=== PATIENT | female | born 1990 | race American Indian/Alaskan Native ===

== ENCOUNTER 2019-08-13 16:25 | Emergency (ER) | payer MEDICAID ==
--- NOTE | 2019-08-13 17:45 | Event Note ---
ED Screening Note Date of service: 08/13/19 Time: 17:41 ED Screening Note: 28 y/o female c/o of abd pain and vaginal bleeding while 9 weeks preg. Bleeding 2 day and pelvic pain times 2 week. No OB care. Started vitamins. G3PP1. This initial assessment/diagnostic orders/clinical plan/treatment(s) is/are subject to change based on patients health status, clinical progression and re- assessment by fellow clinical providers in the ED. Further treatment and workup at subsequent clinical providers discretion. Patient/guardian urged not to elope from the ED as their condition may be serious if not clinically assessed and managed. Initial orders include:
[2019-08-13 18:52] LABS: Basophils % (Auto) 0.6 % (0.0-1.8); Eosinophils % (Auto) 0.5 % (0.0-4.3); Hematocrit 39.3 % (30.3-42.9); Hemoglobin 13.3 gm/dl (10.1-14.3); Lymphocytes # (Auto) 2.1 K/mm3 (1.2-5.4); Lymphocytes % (Auto) 30.3 % (13.4-35.0); Mean Corpuscular HGB Conc 34 % (30-34); Mean Corpuscular Volume 90 fl (79-97); Monocytes # (Auto) 0.5 K/mm3 (0.0-0.8); Monocytes % (Auto) 7.5 % (0.0-7.3); Platelet Count 248 K/mm3 (140-440); Red Blood Count 4.37 M/mm3 (3.65-5.03); Red Cell Distribution Width 12.7 % (13.2-15.2)
[2019-08-13 19:35] LABS: Bacteria,Urine 2+ /HPF (Negative); Bilirubin,Urine NEG (Negative); Blood,Urine NEG (Negative); Color,Urine Yellow (Yellow); Protein,Urine <15 mg/dL mg/dL (Negative); Urobilinogen,Urine < 2.0 mg/dL (<2.0)
--- NOTE | 2019-08-13 19:54 | Emergency Department Report ---
ED Abdominal Pain HPI - General Chief Complaint: Abdominal Pain Stated Complaint: 9WKS /ABD PAIN Time Seen by Provider: 08/13/19 19:30 Source: patient Mode of arrival: Ambulatory Limitations: No Limitations - History of Present Illness Initial Comments: Patient is a 28-year-old female that presents emergency room with complaints of lower abdominal pain. Patient states it started 3 days ago. Patient states yesterday she started spotting. Patient states she is 9 weeks . Patient states the pain is better with rest and worse with movement. Patient states she has not seen an FARM EQUIPMENT ASSEMBLER yet. Patient states her pain is a 9 out of 10. Patient states the pain is in her suprapubic/lower abdomen region. Denies vaginal discharge. Patient denies loss of fluid per vagina. Patient denies fever and chills. Patient denies nausea vomiting. Patient is a . . MD Complaint: abdominal pain -: Sudden Location: suprapubic Radiation: none Migration to: no migration Severity: severe Severity scale (0 -10): 9 Quality: cramping, stabbing Consistency: constant Improves With: rest Worsens With: movement Associated Symptoms: denies: nausea, vomiting, diarrhea, fever, chills, constipation, dysuria, hematemesis, hematochezia, melena, hematuria, anorexia, syncope - Related Data LMP Date: 06/05/19 LMP (females 10-50): Previous Rx's Medication Instructions Recorded Last Taken Type HYDROcodone/ACETAMINOPHEN [[place] 1 each PO Q6HR PRN #20 tablet 04/14/14 Unknown Rx 5/325 Tablet] Ibuprofen [Motrin] 600 mg PO Q8H PRN #60 tablet 04/14/14 Unknown Rx Sulfamethoxazole/Trimethoprim 1 each PO BID #14 tablet 04/14/14 Unknown Rx [Bactrim Ds] Acetaminophen/Codeine [Tylenol #3] 1 tab PO TID PRN #15 tab 07/18/15 Unknown Rx methOCARBAMOL [Robaxin TAB] 500 mg PO BID #20 tab 07/18/15 Unknown Rx Vit No.130/Iron/Folic 1 each PO QDAY #30 tablet 12/23/16 Unknown Rx [ Tablet] Allergies Allergy/AdvReac Type Severity Reaction Status Date / Time No Known Allergies Allergy Verified 08/13/19 17:02 ED Review of Systems ROS: Stated complaint: 9WKS /ABD PAIN Other details as noted in HPI Constitutional: denies: chills, fever Eyes: denies: eye pain, eye discharge, vision change ENT: denies: ear pain, throat pain Respiratory: denies: cough, shortness of breath, wheezing Cardiovascular: denies: chest pain, palpitations Endocrine: no symptoms reported Gastrointestinal: abdominal pain. denies: nausea, diarrhea Genitourinary: denies: urgency, dysuria, discharge Musculoskeletal: denies: back pain, joint swelling, arthralgia Skin: denies: rash, lesions Neurological: denies: headache, weakness, paresthesias Psychiatric: denies: anxiety, depression Hematological/Lymphatic: denies: easy bleeding, easy bruising ED Past Medical Hx - Past Medical History Previous Medical History?: No - Surgical History Past Surgical History?: Yes Additional Surgical History: CS - Family History Family history: no significant - Social History Smoking Status: Never Smoker Substance Use Type: None - Medications Home Medications: Home Medications Medication Instructions Recorded Confirmed Last Taken Type HYDROcodone/ACETAMINOPHEN [[place] 1 each PO Q6HR PRN #20 tablet 04/14/14 Unknown Rx 5/325 Tablet] Ibuprofen [Motrin] 600 mg PO Q8H PRN #60 tablet 04/14/14 Unknown Rx Sulfamethoxazole/Trimethoprim 1 each PO BID #14 tablet 04/14/14 Unknown Rx [Bactrim Ds] Acetaminophen/Codeine [Tylenol #3] 1 tab PO TID PRN #15 tab 07/18/15 Unknown Rx methOCARBAMOL [Robaxin TAB] 500 mg PO BID #20 tab 07/18/15 Unknown Rx Vit No.130/Iron/Folic 1 each PO QDAY #30 tablet 12/23/16 Unknown Rx [ Tablet] ED Physical Exam - General Limitations: No Limitations General appearance: alert, in no apparent distress - Head Head exam: Present: atraumatic, normocephalic - Eye Eye exam: Present: normal appearance - ENT ENT exam: Present: mucous membranes moist - Neck Neck exam: Present: normal inspection - Respiratory Respiratory exam: Present: normal lung sounds bilaterally. Absent: respiratory distress - Cardiovascular Cardiovascular Exam: Present: regular rate, normal rhythm. Absent: systolic murmur, diastolic murmur, rubs, gallop - GI/Abdominal GI/Abdominal exam: Present: soft, normal bowel sounds. Absent: distended, tenderness, guarding - Extremities Exam Extremities exam: Present: normal inspection - Back Exam Back exam: Present: normal inspection - Neurological Exam Neurological exam: Present: alert, oriented X3 - Psychiatric Psychiatric exam: Present: normal affect, normal mood - Skin Skin exam: Present: warm, dry, intact, normal color. Absent: rash ED Course Vital Signs 08/13/19 08/13/19 08/14/19 17:01 17:39 00:59 Temperature 98.4 F 98.4 F 98.6 F Pulse Rate 91 H 91 H 80 Respiratory 16 16 16 Rate Blood Pressure 108/74 Blood Pressure 108/74 107/70 [Left] O2 Sat by Pulse 100 100 100 Oximetry - Reevaluation(s) Reevaluation #1: I discussed all results with patient. I discussed plan of care with patient. Patient agrees with plan of care. Patient is stable for discharge. Patient bradford l be discharged home. Patient given discharge instructions. Patient voiced understanding of discharge instructions. 08/14/19 00:45 - Consultations Consultation #1: Discussed case with Dr. Haris Garcia. Dr. Garcia recommends discharge and for her to follow-up within 1-2 days in his office for serial ultrasounds and hCGs. 08/14/19 00:30 ED Medical Decision Making - Lab Data Result diagrams: 08/13/19 18:04 - Radiology Data Radiology results: report reviewed ULTRASOUND OBSTETRIC INDICATION / CLINICAL INFORMATION: abd pain. spotting. preg. Clinical Gestational Age (GA): 5 weeks 2 days TECHNIQUE: Transabdominal and Transvaginal. COMPARISON: None available. FINDINGS: UTERUS: The uterus is anteverted and anteflexed, measuring up to 11.4 x 5.6 x 6.5 cm. Endometrial thickness measures 16.5 mm. There is no evidence of an intrauterine of at least 4-5 weeks gestation. A 7 mm hypoechoic lesion in the posterior uterine body likely represents a small fibroid. ADNEXA: A mass measuring 2.3 x 2.0 x 1.9 cm in the left ovary is most compatible with a corpus luteum. The right ovary is unremarkable in appearance. No separate adnexal mass identified. FREE FLUID: None. ADDITIONAL FINDINGS: None. IMPRESSION: 1. No evidence of an intrauterine of at least 4-5 weeks gestation. Findings represent of unknown location, with differential considerations including early intrauterine , early ectopic, or completed miscarriage. Recommend correlation with serial hCG and repeat ultrasound as warranted. 2. A mass arising in the left ovary is most compatible with a corpus luteum. - Medical Decision Making Patient is a 28-year-old female that presents emergency room with lower abdom inal pain and spotting. Patient claims she is 9 weeks . Patient had a ultrasound done which shows a empty uterus. I discussed the case with our SHOP WORKER on-call and he recommends discharge and serial hCGs and ultrasounds. Patient's labs unremarkable. Patient's hCG 1818. - Differential Diagnosis abdominal pain, threatened miscarriage. . Spotting. Critical care attestation.: If time is entered above; I have spent that time in minutes in the direct care of this critically ill patient, excluding procedure time. ED Disposition Clinical Impression: Vaginal spotting, Threatened miscarriage Qualifiers: Weeks of gestation: less than 8 weeks Qualified Code(s): Z3A.01 - Less than 8 weeks gestation of Abdominal pain Qualifiers: Abdominal location: lower abdomen, unspecified Qualified Code(s): R10.30 - Lower abdominal pain, unspecified Disposition: DC- TO HOME OR SELFCARE Is pt being admited?: No Does the pt Need Aspirin: No Condition: Stable Instructions: Spontaneous Miscarriage (ED), Threatened Miscarriage (ED), Abdominal Pain (ED) Additional Instructions: Patient to follow-up with primary care in 2-3 days. Patient to follow-up with FARM EQUIPMENT ASSEMBLER within 2 days. Patient to start a vitamin. Patient to return to ER if condition worsens. Patient to rest. Patient to increase water. Patient to take meds as directed. Patient's take Tylenol when necessary for polo Referrals: VASYL GARCIA MD [Primary Care Provider] - 2-3 Days HARIS GARCIA MD [Staff Physician] - 2-3 Days Time of Disposition: 00:50
--- NOTE | 2019-08-14 00:24 | Ultrasound Report ---
ULTRASOUND OBSTETRIC INDICATION / CLINICAL INFORMATION: abd pain. spotting. preg. Clinical Gestational Age (GA): 5 weeks 2 days TECHNIQUE: Transabdominal and Transvaginal. COMPARISON: None available. FINDINGS: UTERUS: The uterus is anteverted and anteflexed, measuring up to 11.4 x 5.6 x 6.5 cm. Endometrial thi ckness measures 16.5 mm. There is no evidence of an intrauterine of at least 4-5 weeks gest ation. A 7 mm hypoechoic lesion in the posterior uterine body likely represents a small fibroid. ADNEXA: A mass measuring 2.3 x 2.0 x 1.9 cm in the left ovary is most compatible with a corpus luteum . The right ovary is unremarkable in appearance. No separate adnexal mass identified. FREE FLUID: None. ADDITIONAL FINDINGS: None. IMPRESSION: 1. No evidence of an intrauterine of at least 4-5 weeks gestation. Findings represent pregn reuben of unknown location, with differential considerations including early intrauterine , ea rly ectopic, or completed miscarriage. Recommend correlation with serial hCG and repeat ultrasound as warranted. 2. A mass arising in the left ovary is most compatible with a corpus luteum. Signer Name: Manuela Jansen MD Signed: 08/14/2019 12:19 AM Workstation Name: [id number]
[2019-08-14 01:01] VITALS: BP 107/70
== END 2019-08-14 01:02 | disposition home or self-care (01) ==
LOC: ED 16:25
DX: O20.0 Threatened abortion (principal); Z3A.01 Less than 8 weeks gestation of pregnancy
CPT/HCPCS: 36415; 76801; 76817; 81001; 84702; 85025; 86850; 86900; 86901

== ENCOUNTER 2020-04-09 09:21 | Inpatient (IN) | payer MEDICAID ==
[2020-04-09] MEDS ORDERED: LACTATED RINGERS 1,000 ML ONE (11:02)
[2020-04-09] MEDS: LACTATED RINGERS 1,000 ML IV SCH ×2 (11:20→12:49)
[2020-04-09] MEDS ORDERED: FAMOTIDINE 20 MG/2 ML INJ IV NR (11:20)
[2020-04-09] MEDS ORDERED: METOCLOPRAMIDE 10 MG/2 ML INJ IV NR (11:20)
[2020-04-09] MEDS ORDERED: BICITRA ORAL LIQD 30ML PO NR (11:20)
[2020-04-09 11:48] LABS: Basophils # (Auto) 0.1 K/mm3 (0.0-0.1); Basophils % (Auto) 0.5 % (0.0-1.8); Eosinophils % (Auto) 0.2 % (0.0-4.3); Hematocrit 40.3 % (30.3-42.9); Hemoglobin 13.7 gm/dl (10.1-14.3); Lymphocytes # (Auto) 1.8 K/mm3 (1.2-5.4); Lymphocytes % (Auto) 16.6 % (13.4-35.0); Mean Corpuscular HGB Conc 34 % (30-34); Mean Corpuscular Volume 92 fl (79-97); Monocytes % (Auto) 8.6 % (0.0-7.3); Platelet Count 219 K/mm3 (140-440); Red Blood Count 4.36 M/mm3 (3.65-5.03); Red Cell Distribution Width 14.5 % (13.2-15.2)
[2020-04-09] MEDS ORDERED: ceFAZolin/Water 2 GM/20 ML 2 GM/20 ML SYRINGE IV NR (12:00)
[2020-04-09] MEDS ORDERED: OXYTOCIN 20 UNIT/1000ML DRIP 20 UNITS/1,000 ML BAG IV SCH ×2 (12:00→15:00)
--- NOTE | 2020-04-09 13:01 | Anesthesia Consultation ---
Anesthesia Consult and Med Hx - Airway Anesthetic Teeth Evaluation: Good ROM Head & Neck: Adequate Mental/Hyoid Distance: Adequate Mallampati Class: Class II Intubation Access Assessment: Good - Pulmonary Exam CTA: Yes - Cardiac Exam Cardiac Exam: RRR - Pre-Operative Health Status ASA Pre-Surgery Classification: ASA2 Proposed Anesthetic Plan: Spinal - Pulmonary Hx Smoking: Yes (quit) Hx Asthma: No Hx Respiratory Symptoms: No SOB: No COPD: No Home Oxygen Therapy: No Hx Pneumonia: No Hx Sleep Apnea: No - Cardiovascular System Hx Hypertension: No Hx Coronary Artery Disease: No Hx Heart Attack/AMI: No Hx Angina: No Hx Percutaneous Transluminal Coronary Angioplasty (PTCA): No Hx Cardia Arrhythmia: No Hx Pacemaker: No Hx Internal Defibrillator: No Hx Valvular Heart Disease: No Hx Heart Murmur: No Hx Peripheral Vascular Disease: No - Central Nervous System Hx Neuromuscular Disorder: No Hx Seizures: No CVA: No Hx Back Pain: No Hx Psychiatric Problems: No - Gastrointestinal Hx Ulcer: No Hx Gastroesophageal Reflux Disease: No - Endocrine Hx Renal Disease: No Hx End Stage Renal Disease: No Hx Cirrhosis: No Hx Liver Disease: No Hx Insulin Dependent Diabetes: No Hx Non-Insulin Dependent Diabetes: No Hx Thyroid Disease: No Hx Hypothyroidism: No Hx Hyperthyroidism: No - Hematic Hx Anemia: No Hx Sickle Cell Disease: No - Other Systems Hx Alcohol Use: No Hx Substance Use: No Hx Cancer: No Hx Obesity: No - Additional Comments Anesthesia Medical History Comments: IUP
--- NOTE | 2020-04-09 13:02 | Anesthesia Day of Surgery ---
Anesthesia Day of Surgery - Day of Surgery Patient Examined: Yes Patient H&P Reviewed: Yes Patient is NPO: Yes Beta Blockers: No (n/a) Cardiac Clearance: No (n/a) Pulmonary Clearance: No (n/a) Vinh's Test: N/A
[2020-04-09] MEDS ORDERED: ceFAZolin/STERILE WATER 2 GM/20 ML SYRINGE IV ONE (13:15)
[2020-04-09] MEDS ORDERED: ONDANSETRON 4 MG/2 ML INJ ONE (13:21)
[2020-04-09] MEDS ORDERED: WATER FOR IRRIG STERILE 1,500 ML BOTTLE IR ONE (13:37)
[2020-04-09] MEDS ORDERED: SODIUM CHLORIDE 0.9% IRR 1,500 ML BOTTLE IR ONE (13:37)
[2020-04-09] MEDS ORDERED: PHENYLEPHRINE/NS 1,000 MCG/10 ML SYRINGE (OR USE) IV ONE (13:41)
[2020-04-09] MEDS ORDERED: DEXMEDETOMIDINE 200 MCG/2 ML VIAL IV ONE (13:41)
[2020-04-09] MEDS ORDERED: KETOROLAC 30 MG/1 ML INJ ONE (13:41)
[2020-04-09] MEDS ORDERED: WITCH HAZEL/ GLYCERIN PAD TP PRN (14:40)
[2020-04-09] MEDS ORDERED: LANOLIN/ZINC/DIMETHICONE (LANSINOH) 7 GM TP PRN (14:40)
[2020-04-09] MEDS ORDERED: NALOXONE 0.4 MG/1 ML INJ IV PRN (14:40)
[2020-04-09] MEDS ORDERED: oxyCODONE /ACETAMINOPHEN 5-325MG TAB PO PRN (14:40)
[2020-04-09] MEDS ORDERED: ONDANSETRON 4 MG/2 ML INJ IV PRN (14:42)
--- NOTE | 2020-04-09 14:46 | Procedure Note ---
OB Delivery Note - Delivery Date of Delivery: 04/09/20 Surgeon: RADHA CONTRERAS Estimated blood loss: other (800 cc) - Section Preop diagnosis: repeat Postop diagnosis: same section procedure: section, repeat low transverse Disposition: PACU Complications: none Narrative: Indication: 29 yo at 39.5 weeks with h/o prior is here for her scheduled repeat low-transverse . Findings: Normal uterus, tubes and ovaries. Clear fluid. No nuchal cord. Some moderate scarring between the bladder and the anterior peritoneal wall and rectus muscle in that area. Moderate subcutaneous tissue scarring also. Procedure: Patient taken to the operating room and prepped and draped in the usual fashion. Pfannenstiel skin incision was made and carried down to the underlying fascia. Fascia was incised and the incision was extended bilaterally. Rectus fascia dissected off the rectus muscle both superiorly and inferiorly. Peritoneum identified tented up and entered. Peritoneal incision extended superiorly and inferiorly with good visualization of the bladder. Bladder blade was placed. Uterine incision was made and the incision was extended bilaterally. The baby was delivered from in the typical vertex fashion. Baby bulb suctioned at the incision site and again after delivery. Cord was delayed clamped and cut and handed off to waiting team. The placenta was delivered spontaneously. The uterus was exteriorized and cleared of all clots and debris. Uterine incision closed with 0 Vicryl in a running locked fashion followed by a second imbricating layer of 0 Vicryl. Good hemostasis was noted. Her urine was clear. Uterus tubes and ovaries return to the abdominal cavity. Gutters were cleared of all clots and debris and the pelvis was well irrigated. Good hemostasis noted. Interceed placed over the uterine incision and over the lower uterine segment in the midline. Attention was turned to the rectus fascia which was reapproximated with 0 Vicryl in a running fashion. Subcutaneous tissues was irrigated and reapproximated with 2-0 Vicryl in a running fashion. Skin was closed with 4-0 Vicryl in a subcuticular fashion followed by Dermabond. The procedure was concluded at this point and the patient tolerated the procedure well. All instrument and lap counts were correct. - A at 1 minute: 8 at 5 minutes: 9 Infant Gender: Female
[2020-04-09] MEDS: KETOROLAC 30 MG/1 ML INJ IV PRN ×2 (16:19→22:19)
[2020-04-10] MEDS: oxyCODONE /ACETAMINOPHEN 5-325MG TAB PO PRN ×4 (00:17→20:41)
[2020-04-10 05:54] LABS: Hematocrit 38.3 % (30.3-42.9); Hemoglobin 12.7 gm/dl (10.1-14.3)
[2020-04-10] MEDS: KETOROLAC 30 MG/1 ML INJ IV PRN (08:15)
--- NOTE | 2020-04-10 11:02 | Progress Note ---
Assessment and Plan A: /postop day 1 S/P repeat LTCS. P: Encouraged patient to ambulate. Subjective - Subjective Date of service: 04/10/20 Principal diagnosis: /postop day 1 S/P repeat LTCS Interval history: /postop day 1. Patient reports: appetite normal, voiding normally, pain well controlled, flatus, ambulating normally, no dizzy ambulation, no nauseated : doing well Objective - Vital Signs Latest vital signs: Vital Signs Temp Pulse Resp BP BP Pulse Ox 04/10/20 08:26 98.6 F 108 H 20 106/64 04/10/20 08:15 20 04/10/20 06:30 98.0 F 90 18 101/62 98 04/10/20 02:44 97.9 F 78 18 100/55 96 04/09/20 21:22 98.3 F 87 18 98/53 97 04/09/20 16:50 97.5 F L 78 18 90/56 98 04/09/20 16:00 97.5 F L 78 10 L 88/54 99 04/09/20 15:45 74 14 88/52 99 04/09/20 15:30 79 10 L 90/49 97 04/09/20 15:15 82 10 L 85/46 97 04/09/20 15:00 80 11 L 85/42 98 04/09/20 14:55 80 12 82/41 98 04/09/20 14:50 97.9 F 78 14 85/43 98 04/09/20 11:41 96 H 99 04/09/20 11:36 90 100 04/09/20 11:31 90 99 04/09/20 11:27 97.5 F L 20 04/09/20 11:26 86 99 04/09/20 11:21 106 H 97 04/09/20 11:16 94 H 99 04/09/20 11:11 91 H 98 04/09/20 11:06 91 H 98 04/09/20 11:01 91 H 98 Intake and Output 04/09/20 04/10/20 04/10/20 23:59 07:59 15:59 Intake Total 980 120 240 Output Total 800 400 Balance 180 -280 240 Intake: IV 500 Oral 240 Intake, Free Water 480 120 Output: Urine 800 400 Indwelling Catheter 450 400 Uretheral (Ty) 175 Other: Total, Intake Amount 240 Total, Output Amount 450 400 - Exam Cardiovascular: Present: Regular rate, Normal S1, Normal S2, No murmurs Lungs: Present: Clear to auscultation Abdomen: Present: normal appearance, soft, normal bowel sounds. Absent: distention, tenderness, guarding, rigidity Uterus: Present: normal, firm, fundal height below umbilicus. Absent: bogginess, tenderness Extremities: Present: normal. Absent: tenderness Incision: Present: normal, dry, dressed - Labs Labs: Abnormal lab results 04/09/20 Range/Units 11:20 WBC 11.1 H (4.5-11.0) K/mm3 Cotton % (Auto) 8.6 H (0.0-7.3) % Cotton # 1.0 H (0.0-0.8) K/mm3 Seg Neutrophils % 74.1 H (40.0-70.0) % Seg Neutrophils # 8.2 H (1.8-7.7) K/mm3
--- NOTE | 2020-04-10 11:07 | Post Anesthesia Evaluation ---
- Post Anesthesia Evaluation Patient Participated: Yes Airway Patent: Yes Stable Respiratory Function: Yes Nausea/Vomiting: No Temp > 96.8F: Yes Pain Manageable: Yes Adequeate Hydration: Yes Anesthesia Complications: No Block Receding Appropriately: Yes Patient on Ventilator: No
[2020-04-10] MEDS: IBUPROFEN 800 MG TAB PO PRN ×2 (16:15→23:52)
[2020-04-10] MEDS: MAGNESIUM HYDROXIDE (MOM) ORAL LIQD UDC PO PRN (20:40)
[2020-04-10] MEDS: SENNOSIDES 8.6 MG TAB PO PRN (20:40)
[2020-04-10] MEDS: SIMETHICONE 80 MG CHEW TAB PO PRN (20:41)
[2020-04-11] MEDS: oxyCODONE /ACETAMINOPHEN 5-325MG TAB PO PRN ×3 (03:59→20:12)
[2020-04-11] MEDS: IBUPROFEN 800 MG TAB PO PRN ×3 (08:30→22:21)
--- NOTE | 2020-04-11 12:13 | Progress Note ---
Assessment and Plan A: day 2 S/P repeat LTCS. P: Anticipate discharge tomorrow. Continue current management. Subjective - Subjective Date of service: 04/11/20 Principal diagnosis: /postop day 2 S/P repeat LTCS Interval history: /postop day 2. Patient reports: appetite normal, voiding normally, pain well controlled, flatus, ambulating normally, no dizzy ambulation, no nauseated [place]: doing well Objective - Vital Signs Latest vital signs: Vital Signs Temp Pulse Resp BP 04/11/20 09:30 97.2 F L 88 20 96/55 04/11/20 08:30 20 04/11/20 00:00 98.8 F 74 18 117/72 04/10/20 16:15 20 04/10/20 16:00 97.8 F 89 20 100/62 04/10/20 12:18 20 Intake and Output 04/10/20 04/11/20 04/11/20 23:59 07:59 15:59 Intake Total 240 600 240 Output Total 500 Balance -260 600 240 Intake: Oral 240 240 Intake, Free Water 600 Output: Urine 500 Void 500 Other: Total, Intake Amount 120 240 Total, Output Amount 200 # Voids Void 3 1 1 - Exam Cardiovascular: Present: Regular rate, Normal S1, Normal S2 Lungs: Present: Clear to auscultation Abdomen: Present: normal appearance, soft, normal bowel sounds. Absent: distention, tenderness, guarding Uterus: Present: normal, firm, fundal height below umbilicus. Absent: bogginess, tenderness Extremities: Present: normal. Absent: tenderness, edema Incision: Present: normal, dry, dressed
[2020-04-11] MEDS ORDERED: NEOMY 3.5 MG/BACIT 400 UNITS/POLY B 5000 UNITS OINT 15 GM TP ONE (17:05)
[2020-04-11] MEDS: NEOMY 3.5 MG/BACIT 400 UNITS/POLY B 5000 UNITS OINT 15 GM TP SCH (17:09)
[2020-04-11] MEDS: MAGNESIUM HYDROXIDE (MOM) ORAL LIQD UDC PO PRN (22:20)
[2020-04-11] MEDS: SIMETHICONE 80 MG CHEW TAB PO PRN (22:21)
[2020-04-12] MEDS: SENNOSIDES 8.6 MG TAB PO PRN (02:34)
[2020-04-12] MEDS: oxyCODONE /ACETAMINOPHEN 5-325MG TAB PO PRN ×2 (02:34→09:28)
[2020-04-12] MEDS: IBUPROFEN 800 MG TAB PO PRN (05:49)
[2020-04-12] MEDS: NEOMY 3.5 MG/BACIT 400 UNITS/POLY B 5000 UNITS OINT 15 GM TP SCH (08:00)
--- NOTE | 2020-04-12 10:44 | Progress Note ---
Assessment and Plan A: POD #3 Pedal edema P: Follow Routine PostOp Orders Encourage increased ambulation Elevate feet at night D/C home today RTO in one Week Subjective - Subjective Date of service: 04/12/20 Principal diagnosis: /postop day 2 S/P repeat LTCS Patient reports: appetite normal, voiding normally, pain well controlled, flatus, ambulating normally : doing well, bottle feeding (and ) Objective - Vital Signs Latest vital signs: Vital Signs Temp Pulse Resp BP BP Pulse Ox 04/12/20 09:00 97.8 F 80 20 100/59 04/11/20 23:19 98.2 F 93 H 20 116/70 93 04/11/20 20:40 99.3 F 100 H 20 107/65 98 04/11/20 16:17 20 04/11/20 15:35 98.9 F 99 H 20 119/49 04/11/20 13:04 20 Intake and Output 04/11/20 04/12/20 04/12/20 22:59 06:59 14:59 Intake Total 840 240 360 Balance 840 240 360 Intake: Oral 840 240 360 Other: Total, Intake Amount 240 240 360 # Voids Void 1 1 1 - Exam Breasts: Present: normal Cardiovascular: Present: Regular rate Lungs: Present: Clear to auscultation, Normal air movement Abdomen: Present: normal appearance, soft, normal bowel sounds Uterus: Present: normal, firm, fundal height below umbilicus Extremities: Present: edema (+1 biateral pedal) Incision: Present: normal, dry, intact
--- NOTE | 2020-04-12 10:45 | Discharge Summary ---
Providers - Providers Date of Admission: 04/09/20 09:21 Date of discharge: 04/12/20 Attending physician: RADHA CONTRERAS Primary care physician: RADHA CONTRERAS Hospitalization Reason for admission: section Delivery: Procedure: repeat low transverse Episiotomy: none Laceration: none Incision: normal, dry, intact Other procedures: none complications: none Discharge diagnosis: IUP at term delivered baby: female Condition at discharge: Good Disposition: DC-01 TO HOME OR SELFCARE Plan - Discharge Medications Prescriptions: Ibuprofen [Motrin 800 MG tab] 800 mg PO Q6H PRN #30 tablet PRN Reason: Pain, Mild (1-3) oxyCODONE /ACETAMINOPHEN [Percocet 5/325 mg] 1 tab PO Q4H PRN #30 tablet PRN Reason: Pain, Moderate (4-6) - Provider Discharge Summary Activity: routine, no sex for 6 weeks, no heavy lifting 4 weeks, no strenuous exercise Diet: routine Instructions: routine Additional instructions: [] Smoking cessation referral if applicable(refer to patient education folder for contact #) [] Refer to [facility] Booklet Call your doctor immediately for: * Fever > 100.5 * Heavy vaginal bleeding ( >1 pad per hour) * Severe persistent headache * Shortness of breath * Reddened, hot, painful area to leg or breast * Drainage or odor from incision. * Keep incision clean and dry at all times and follow doctor's instructions regarding bathing/showering - Follow up plan Follow up: RADHA CONTRERAS MD [Primary Care Provider] - 7 Days
[2020-04-12 13:29] VITALS: BP 97/57
== END 2020-04-12 13:45 | disposition home or self-care (01) | DRG 766 ==
LOC: APU 09:21 → OB 17:20
PROVIDERS: ADMIT Obstetrics & Gynecology; ATTEND Obstetrics & Gynecology
PROC: 10D00Z1 Extraction of Products of Conception, Low, Open Approach (ICD-10-PCS; principal; 2020-04-09)
DX: O34.211 Maternal care for low transverse scar from previous cesarean delivery (principal); Z3A.39 39 weeks gestation of pregnancy; Z37.0 Single live birth
CPT/HCPCS: 36415; 59025; 85014; 85018; 85025; 86850; 86900; 86901; 96360; G0378; A6250; C1765; J0690; J1885; J2370; J2405; J2590; J2765; J3490; J7120